=== PATIENT | female | born 1980 | race Caucasian/White ===

== ENCOUNTER 2017-04-21 20:15 | Emergency (ER) | payer BC ==
[2017-04-21] MEDS ORDERED: Albuterol/Ipratropium NEB.SOL* Albuterol 2.5 MG/Ipratropium 0.5 MG 3 ML INH ONE (20:58)
[2017-04-21 21:09] VITALS: BP 117/70
--- NOTE | 2017-04-21 21:46 | UC ---
Throat Pain/Nasal James HPI - HPI Summary HPI Summary: THREE DAYS OF LARYNGITIS, SORE THROAT YESTERDAY. WHEEZING TO DAY. NO COUGH. NO RASH. NO FEVER. NO ABDOMINAL PAIN. - History of Current Complaint Chief Complaint: UCGeneralIllness Stated Complaint: SORE THROAT,NO VOICE Time Seen by Provider: 04/21/17 20:35 Hx Obtained From: Patient, Family/Range Aid Hx Last Menstrual Period: 2 weeks ago Onset/Duration: Gradual Onset, Lasting Days, Still Present, Worse Since - TODAY Severity: Moderate Cough: None Associated Signs & Symptoms: Positive: Dysphagia, Wheezing, Hoarseness - Epiglottits Risk Factors Epiglottis Risk Factors: Negative - Allergies/Home Medications Allergies/Adverse Reactions: Allergies Allergy/AdvReac Type Severity Reaction Status Date / Time No Known Allergies Allergy Verified 04/21/17 20:46 PMH/Surg Hx/FS Hx/Imm Hx Previously Healthy: Yes - Surgical History Surgical History: Yes Surgery Procedure, Year, and Place: 2002 THYROIDECTOMY. TUBAL - Family History Known Family History: Negative: Respiratory Disease, Blood Disorder - Social History Occupation: Employed Full-time Lives: With Family Alcohol Use: Rare Substance Use Type: None Smoking Status (MU): Current Every Day Smoker Type: Cigarettes Amount Used/How Often: 1/2 PPD Length of Time of Smoking/Using Tobacco: 18+ years Review of Systems Constitutional: Negative Skin: Negative Eyes: Negative ENT: Sore Throat Respiratory: Negative Cardiovascular: Negative Gastrointestinal: Negative Genitourinary: Negative Motor: Negative Neurovascular: Negative Musculoskeletal: Negative Neurological: Negative Psychological: Negative Is Patient Immunocompromised?: No All Other Systems Reviewed And Are Negative: Yes Physical Exam Triage Information Reviewed: Yes Appearance: No Pain Distress, Well-Nourished, Ill-Appearing - MILDLY Vital Signs: Initial Vital Signs Temp 98.6 F 04/21/17 20:42 Pulse 64 04/21/17 20:42 Resp 18 04/21/17 20:42 BP 117/70 04/21/17 20:42 Pulse Ox 98 04/21/17 20:42 Vital Signs Reviewed: Yes Eye Exam: Normal ENT: Positive: Hearing grossly normal, Pharyngeal erythema, TMs normal Dental Exam: Normal Neck exam: Normal Neck: Positive: Supple, Nontender Respiratory Exam: Other Respiratory: Positive: Chest non-tender, No accessory muscle use, Wheezing Cardiovascular Exam: Normal Cardiovascular: Positive: RRR, No Murmur, Pulses Normal Abdominal Exam: Normal Musculoskeletal Exam: Normal Musculoskeletal: Positive: Strength Intact, ROM Intact Neurological Exam: Normal Psychological Exam: Normal Skin Exam: Normal Throat Pain/Nasal Course/Dx - Differential Dx/Diagnosis Differential Diagnosis/HQI/PQRI: Laryngitis, Sinusitis, Tonsillitis, URI Provider Diagnoses: LARYNGITIS, UPPER RESPIRATORY INFECTION, BRONCHOSPASM. TOBACCO ABUSE Discharge - Discharge Plan Condition: Stable Disposition: HOME Prescriptions: Albuterol HFA INHALER* [Ventolin HFA Inhaler*] 1 - 2 puff INH Q6H PRN #1 mdi PRN Reason: Wheezing Patient Education Materials: Pharyngitis (ED), Laryngitis (ED), Upper Respiratory Infection (ED), Wheezing (ED) Forms: *Work Release Referrals: [facility]IAN [facility]FERR[facility] [Outside] No Primary Care Phys,NOPCP [Primary Care Provider] -
== END 2017-04-21 21:45 | disposition home or self-care (01) ==
LOC: UCEAST 20:15
DX: J04.0 Acute laryngitis (principal); J06.9 Acute upper respiratory infection, unspecified; J98.01 Acute bronchospasm; F17.210 Nicotine dependence, cigarettes, uncomplicated
CPT/HCPCS: 87651; 99212; A9270-GY; G0463

== ENCOUNTER 2017-11-18 19:38 | Emergency (ER) | payer BC ==
[2017-11-18 19:58] VITALS: BP 143/84
--- NOTE | 2017-11-18 20:21 | UC ---
Lower Extremity/Ankle HPI - HPI Summary HPI Summary: 1. 2 WEEKS OF PAIN RIGHT ANKLE. NO TRAUMA OR INJURY. WORSE WITH CERTAIN MOVEMENTS AND WEIGHTBEARING. 2. OVER A MONTH OF INTERMITTENT TINGLING IN LATERAL RIGHT THIGH. NO SADDLE ANESTHESIA OR LOSS OF BOWEL/BLADDER CONTROL. - History of Current Complaint Chief Complaint: UCLowerExtremity Stated Complaint: KNEE AND ANKLE PAIN Time Seen by Provider: 11/18/17 19:58 Hx Obtained From: Patient Hx Last Menstrual Period: 3 WEEKS AGO Onset/Duration: Gradual Onset, Lasting Weeks, Still Present Severity Initially: Moderate Severity Currently: Moderate Pain Intensity: 6 Pain Scale Used: 0-10 Numeric Aggravating Factor(s): Standing, Ambulation Alleviating Factor(s): Rest Able to Bear Weight: Yes - Allergies/Home Medications Allergies/Adverse Reactions: Allergies Allergy/AdvReac Type Severity Reaction Status Date / Time No Known Allergies Allergy Verified 11/18/17 19:58 PMH/Surg Hx/FS Hx/Imm Hx Endocrine History: Hypothyroidism - Surgical History Surgical History: Yes Surgery Procedure, Year, and Place: 2002 THYROIDECTOMY. TUBAL LIGATION - Family History Known Family History: Positive: Hypertension Negative: Respiratory Disease, Blood Disorder - Social History Alcohol Use: Rare Substance Use Type: None Smoking Status (MU): Current Every Day Smoker Type: Cigarettes Amount Used/How Often: 1/2-3/4 PPD Length of Time of Smoking/Using Tobacco: 18+ years Review of Systems Constitutional: Negative Skin: Negative Respiratory: Negative Cardiovascular: Negative Gastrointestinal: Negative Musculoskeletal: Arthralgia Neurological: Paresthesia All Other Systems Reviewed And Are Negative: Yes Physical Exam Triage Information Reviewed: Yes Appearance: Well-Appearing, No Pain Distress, Well-Nourished Vital Signs: Initial Vital Signs Temp 98.1 F 11/18/17 19:54 Pulse 79 11/18/17 19:54 Resp 16 11/18/17 19:54 BP 143/84 11/18/17 19:54 Pulse Ox 100 11/18/17 19:54 Vital Signs Reviewed: Yes Eyes: Positive: Conjunctiva Clear ENT: Positive: Hearing grossly normal Neck: Positive: Supple Respiratory: Positive: No respiratory distress, No accessory muscle use Cardiovascular: Positive: Pulses Normal Abdomen Description: Positive: Soft Musculoskeletal: Positive: ROM Intact, No Edema, Other: - MILDLY TENDER RIGHT LATERAL ANKLE. ACHILLES INTACT Neurological: Positive: Alert Psychological: Positive: Age Appropriate Behavior Skin: Negative: rashes Diagnostics - Radiology RIGHT ANKLE XRAY Xray Interpretation: No Acute Changes Radiology Interpretation Completed By: Radiologist Lower Extremity Course/Dx - Differential Dx/Diagnosis Provider Diagnoses: 1. RIGHT ANKLE STRAIN. 2. MERALGIA PARESTHETICA Discharge - Sign-Out/Discharge Documenting (check all that apply): Discharge/Admit/Transfer - Discharge Plan Condition: Stable Disposition: HOME Prescriptions: predniSONE TAB* [Deltasone TAB*] 40 mg PO DAILY #10 tab Patient Education Materials: Meralgia Paresthetica (ED), Ankle Strain (ED) Referrals: Simone Long MD [Medical Doctor] - If Needed Wendi Schaeffer MD [Primary Care Provider] - If Needed Additional Instructions: ANKLE XRAY UNREMARKABLE TODAY. REST, ELEVATE. ANUHSA WRAP AND GEL SPLINT NEEDED FOR SUPPORT AND COMFORT. OTC IBUPROFEN NEEDED. IF SX PERSIST FOLLOW-UP WITH YOUR PCP OR ORTHO. CONSIDER PT FOR YOUR ANKLE. FOR MERALGIA PARESTHETICA WORK ON WEIGHT LOSS AND AVOID TIGHT BELTS AND CLOTHES. TRY SHORT BURST OF STEROIDS TO CALM ANY INFLAMMATION. - Billing Disposition and Condition Condition: STABLE Disposition: HOME
--- NOTE | 2017-11-18 20:47 | RAD ---
INDICATION: 1 week of pain at the medial malleolus COMPARISON: None. TECHNIQUE: 3 views of the right ankle were obtained. FINDINGS: The bones are normal alignment. Joint spaces appear maintained. No fracture is seen. IMPRESSION: Normal ankle radiograph. If the patient's symptoms persist, follow-up imaging is recommended.
== END 2017-11-18 21:10 | disposition home or self-care (01) ==
LOC: UCEAST 19:38
DX: S96.911A Strain of unspecified muscle and tendon at ankle and foot level, right foot, initial encounter (principal); X58.XXXA Exposure to other specified factors, initial encounter; Y93.9 Activity, unspecified; Y92.9 Unspecified place or not applicable; G57.11 Meralgia paresthetica, right lower limb; E03.9 Hypothyroidism, unspecified; F17.210 Nicotine dependence, cigarettes, uncomplicated
CPT/HCPCS: 99213; G0463

== ENCOUNTER 2017-12-25 11:28 | Emergency (ER) | payer BC, OTHER ==
[2017-12-25 11:59] VITALS: BP 122/72
--- NOTE | 2017-12-25 12:07 | UC ---
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---gait is steady but full flex is painful - History of Current Complaint Chief Complaint: UCLowerExtremity Stated Complaint: KNEE INJURY Time Seen by Provider: 12/25/17 12:01 Hx Obtained From: Patient Hx Last Menstrual Period: 12/23/17 ?: No Onset/Duration: Sudden Onset Location Of Injury: left knee Pain Intensity: 5 Pain Scale Used: 0-10 Numeric Character: Aching, Throbbing Aggravating Factor(s): Other - flexing Associated Signs And Symptoms: Positive: Negative Able to Bear Weight: Yes - Allergies/Home Medications Allergies/Adverse Reactions: Allergies Allergy/AdvReac Type Severity Reaction Status Date / Time No Known Allergies Allergy Verified 12/25/17 11:59 Home Medications: Home Medications Levothyroxine TAB* [Synthroid 125 MCG TAB*] 125 mcg PO DAILY 12/25/17 [History Confirmed 12/25/17] PMH/Surg Hx/FS Hx/Imm Hx Previously Healthy: No Endocrine History: Hypothyroidism - Surgical History Surgical History: Yes Surgery Procedure, Year, and Place: 2002 THYROIDECTOMY. TUBAL LIGATION - Family History Known Family History: Positive: Hypertension Negative: Respiratory Disease, Blood Disorder - Social History Occupation: Employed Full-time Lives: With Family Alcohol Use: Rare Substance Use Type: None Smoking Status (MU): Current Every Day Smoker Type: Cigarettes Amount Used/How Often: 1/2-3/4 PPD Length of Time of Smoking/Using Tobacco: 18+ years Have You Smoked in the Last Year: Yes Review of Systems Constitutional: Negative Skin: Negative Eyes: Negative ENT: Negative Respiratory: Negative Cardiovascular: Negative Gastrointestinal: Negative Genitourinary: Negative Motor: Negative Neurovascular: Negative Musculoskeletal: Arthralgia - left knee Neurological: Negative Psychological: Negative Is Patient Immunocompromised?: No All Other Systems Reviewed And Are Negative: Yes Physical Exam Triage Information Reviewed: Yes Appearance: Well-Appearing, No Pain Distress, Well-Nourished Vital Signs: Initial Vital Signs Temp 98 F 12/25/17 11:56 Pulse 61 12/25/17 11:56 Resp 16 12/25/17 11:56 BP 122/72 12/25/17 11:56 Pulse Ox 99 12/25/17 11:56 Vital Signs Reviewed: Yes Eye Exam: Normal Eyes: Positive: Conjunctiva Clear ENT Exam: Normal ENT: Positive: Normal ENT inspection, Hearing grossly normal. Negative: Trismus , Muffled voice, Hoarse voice Dental Exam: Normal Neck exam: Normal Neck: Positive: Supple, Nontender, No Lymphadenopathy Respiratory Exam: Normal Respiratory: Positive: Chest non-tender, No respiratory distress, No accessory muscle use Cardiovascular Exam: Normal Cardiovascular: Positive: RRR, Pulses Normal, Brisk Capillary Refill Musculoskeletal Exam: Other Musculoskeletal: Positive: Strength Intact, ROM Intact, No Edema, Other: - pain with full flex of knee Neurological Exam: Normal Neurological: Positive: Alert, Muscle Tone Normal Psychological Exam: Normal Skin Exam: Normal Diagnostics - Radiology No standard instances Radiology Interpretation Completed By: ED Physician, Radiologist - Patient Name : FABRICE ZAPATA Medical Record#: [id number] Ordering Physician: Bev Pantoja NP Acct.#: [id number] : 1980 Age: 37 Sex: F Location: [facility] Exam Date: 12/25/17 1201 ADM Status: REG ER Order Information: KNEE LEFT 4+ VWS Accession Number: [id number] CPT: 62941 INDICATION: Left knee pain COMPARISON: None TECHNIQUE: AP, lateral, and oblique views were obtained. FINDINGS: The bony structures, joint spaces, and soft tissues are normal for age. IMPRESSION: NO ACUTE BONY FINDINGS. <Electronically signed by Derek Payne MD in [place]> 12/25/17 1256 Dictated By: Derek Payne MD Dictated Date/Time: 12/25/17 1256 Transcribed Date/Time: 12/25/17 1253 Copy to: CC:Madina Mckeon MD; Bev Pantoja NP; Wendi Schaeffer MD [facility] Imaging [facility] [address] [place] [address] ph ) ph [phone]) ([phone]) 1 of 1 Knee Pain Course/Dx - Course Course Of Treatment: rice, ice, ibuprofen, won wrap follow with pcp prn - Differential Dx/Diagnosis Provider Diagnoses: nicotine dependent, left knee contusion Discharge - Sign-Out/Discharge Documenting (check all that apply): Discharge/Admit/Transfer - Discharge Plan Condition: Stable Disposition: HOME Patient Education Materials: How to Stop Smoking (ED), Contusion in Adults (ED) , Knee Pain (ED), R.I.C.E. Treatment (ED) Forms: *Work Release Referrals: Shira Hebert MD [Medical Doctor] - If Needed - Billing Disposition and Condition Condition: STABLE Disposition: Home
--- NOTE | 2017-12-25 12:59 | RAD ---
INDICATION: Left knee pain COMPARISON: None TECHNIQUE: AP, lateral, and oblique views were obtained. FINDINGS: The bony structures, joint spaces, and soft tissues are normal for age. IMPRESSION: NO ACUTE BONY FINDINGS.
== END 2017-12-25 13:38 | disposition home or self-care (01) ==
LOC: UCEAST 11:28
DX: S80.02XA Contusion of left knee, initial encounter (principal); X58.XXXA Exposure to other specified factors, initial encounter; Y93.89 Activity, other specified; Y92.89 Other specified places as the place of occurrence of the external cause; Y99.0 Civilian activity done for income or pay; E03.9 Hypothyroidism, unspecified; F17.210 Nicotine dependence, cigarettes, uncomplicated; Z82.49 Family history of ischemic heart disease and other diseases of the circulatory system
CPT/HCPCS: 99212; G0463

== ENCOUNTER 2018-04-14 19:31 | Emergency (ER) | payer BC, OTHER ==
[2018-04-14 19:38] VITALS: BP 133/80
[2018-04-14] MEDS ORDERED: Benzonatate CAP* 100 MG PO ONE (20:38)
[2018-04-14] MEDS ORDERED: Azithromycin TAB* 250 MG PO ONE (20:38)
--- NOTE | 2018-04-14 20:38 | UC ---
Respiratory Complaint HPI - HPI Summary HPI Summary: 37-year-old female presents with one-week history of mild shortness of breath and productive cough for green sputum. Denies fever, chills, nasal congestion or drainage, ear pain or drainage, sore throat, chest pain, abdominal pain, nausea, or vomiting. Patient is a half pack a day smoker. - History of Current Complaint Chief Complaint: UCRespiratory Stated Complaint: URI Time Seen by Provider: 04/14/18 20:24 Hx Obtained From: Patient Hx Last Menstrual Period: one wk ago Onset/Duration: Gradual Onset, Lasting Weeks - 1 Pain Intensity: 0 Aggravating Factors: Deep Breaths Associated Signs And Symptoms: Positive: Dyspnea. Negative: Fever, Chills, Pleuritic Chest Pain, Wheezing, Hemoptysis, URI, Nasal Congestion, Hoarseness, Sinus Discomfort - Allergies/Home Medications Allergies/Adverse Reactions: Allergies Allergy/AdvReac Type Severity Reaction Status Date / Time No Known Allergies Allergy Verified 04/14/18 19:39 PMH/Surg Hx/FS Hx/Imm Hx Previously Healthy: Yes Endocrine History: Hypothyroidism - Surgical History Surgical History: Yes Surgery Procedure, Year, and Place: 2002 THYROIDECTOMY. TUBAL LIGATION - Family History Known Family History: Positive: Hypertension Negative: Respiratory Disease, Blood Disorder - Social History Occupation: Employed Part-time Lives: With Family Alcohol Use: Rare Substance Use Type: None Smoking Status (MU): Current Every Day Smoker Type: Cigarettes Amount Used/How Often: 1/2-3/4 PPD Length of Time of Smoking/Using Tobacco: 18+ years Have You Smoked in the Last Year: Yes Review of Systems Constitutional: Negative Skin: Negative Eyes: Negative ENT: Negative Respiratory: Shortness Of Breath, Cough Cardiovascular: Negative Gastrointestinal: Negative Is Patient Immunocompromised?: No All Other Systems Reviewed And Are Negative: Yes Physical Exam Triage Information Reviewed: Yes Appearance: Well-Appearing, No Pain Distress, Well-Nourished Vital Signs: Initial Vital Signs Temp 98.1 F 04/14/18 19:36 Pulse 59 04/14/18 19:36 Resp 18 04/14/18 19:36 BP 133/80 04/14/18 19:36 Pulse Ox 98 04/14/18 19:36 Vital Signs Reviewed: Yes Eyes: Positive: Conjunctiva Clear. Negative: Discharge ENT: Positive: Pharynx normal, TMs normal, Uvula midline. Negative: Nasal congestion, Nasal drainage, Trismus, Muffled voice, Hoarse voice, Sinus tenderness Neck: Positive: Supple, Nontender, No Lymphadenopathy Respiratory: Positive: Lungs clear, Normal breath sounds, No respiratory distress. Negative: Crackles, Rhonchi, Wheezing Cardiovascular: Positive: RRR, No Murmur Neurological: Positive: Alert Skin Exam: Normal UC Diagnostic Evaluation - Laboratory O2 Sat by Pulse Oximetry: 98 Respiratory Course/Dx - Course Course Of Treatment: 37 year old female presents with symptoms of acute bronchitis. Her exam was essentially unremarkable however with the duration of symptoms and her smoking history will treat her with course of azithromycin as well as symptomatic treatment. She is to follow up with her PCP if no improvement in symptoms. Patient verbalizes understanding and agrees with POC. - Differential Dx/Diagnosis Differential Diagnosis/HQI/PQRI: Bronchitis, Lower Resp Infection Provider Diagnoses: Acute bronchitis Discharge - Sign-Out/Discharge Documenting (check all that apply): Patient Departure All imaging exams completed and their final reports reviewed: No Studies - Discharge Plan Condition: Stable Disposition: HOME Prescriptions: Azithromycin 250 mg PO DAILY #4 tablet Benzonatate CAP* [Tessalon 100 MG CAP*] 100 mg PO TID PRN #15 cap PRN Reason: Cough Patient Education Materials: Acute Bronchitis (ED) Referrals: Wendi Schaeffer MD [Primary Care Provider] - 5 Days (If no improvement in symptoms.) Additional Instructions: Your symptoms are concerning for an acute bronchitis. We will start you an antibiotic for the infection. You were given the first dose of azithromycin in the clinic. Starting tomorrow take 1 tab daily for 4 days. You may use Tessalon Perles 1 cap every 8 hours as needed for cough. I recommend that you stop smoking as this can worsen your symptoms. Follow up with your primary care provider in 5 days is symptoms persist. Your blood pressure was mildly elevated in the clinic today. It is recommended that you follow up with primary care provider at some point to have this rechecked. Seek immediate medical attention in the emergency room if you develop fever greater than 100.5 F, have chest pain, shortness of breath, or any worsening of symptoms. - Billing Disposition and Condition Condition: STABLE Disposition: Home
== END 2018-04-14 20:50 | disposition home or self-care (01) ==
LOC: UCEAST 19:31
DX: J20.9 Acute bronchitis, unspecified (principal); F17.210 Nicotine dependence, cigarettes, uncomplicated
CPT/HCPCS: 99212; A9270-GY; G0463

== ENCOUNTER 2018-09-28 12:10 | Emergency (ER) | payer BC ==
[2018-09-28 12:38] VITALS: BP 144/76
--- NOTE | 2018-09-28 12:44 | UC ---
UC General HPI - HPI Summary HPI Summary: Two days ago patient was running around chasing her daughter when she developed a sharp pain up the interior side of her right ankle. She doesn't recall twisting it and did not fall but just developed a sharp pain. Has sprained this ankle several times in the past. Did buy a splint last night and wore it all morning while on her feet at work at [employer]. Is able to walk but continues to have pain. Meds: REviewed - History of Current Complaint Chief Complaint: UCLowerExtremity Stated Complaint: FOOT PAIN Time Seen by Provider: 09/28/18 12:32 Hx Last Menstrual Period: 09/01/18 Pain Intensity: 5 - Allergy/Home Medications Allergies/Adverse Reactions: Allergies Allergy/AdvReac Type Severity Reaction Status Date / Time No Known Allergies Allergy Verified 09/28/18 12:32 PMH/Surg Hx/FS Hx/Imm Hx Previously Healthy: Yes Endocrine History: Hypothyroidism - Surgical History Surgical History: Yes Surgery Procedure, Year, and Place: 2002 THYROIDECTOMY. TUBAL LIGATION - Family History Known Family History: Positive: Hypertension Negative: Respiratory Disease, Blood Disorder - Social History Alcohol Use: Rare Substance Use Type: None Smoking Status (MU): Current Every Day Smoker Type: Cigarettes Amount Used/How Often: 1/2-3/4 PPD Length of Time of Smoking/Using Tobacco: 18+ years Have You Smoked in the Last Year: Yes Review of Systems All Other Systems Reviewed And Are Negative: Yes Physical Exam Triage Information Reviewed: Yes Appearance: Well-Appearing Vital Signs: Initial Vital Signs Temp 97.8 F 09/28/18 12:33 Pulse 71 09/28/18 12:33 Resp 18 09/28/18 12:33 BP 144/76 09/28/18 12:33 Pulse Ox 100 09/28/18 12:33 Vital Signs Reviewed: Yes Musculoskeletal: Positive: Other: - right ankle pain over medial malleolus. Pain with extension and pronation;. +2 DP pulses Diagnostics - Radiology Ankle xray Radiology Interpretation Completed By: Radiologist Summary of Radiographic Findings: No acute osseous injury Course/Dx - Course Course Of Treatment: This is a healthy 38 yr old with a right ankle injury Assessment Ankle xray: Negative Dx; Ankle sprain Plan Continue to rest, elevate and ice area Can use ibuprofen as needed as directed for pain Recommend staying off your feet today and tomorrow Continue to use ankle splint while ambulating and working Recommend repeating your blood pressure when you are at store/pharmacy - if it continues to be elevated, follow up with your PCP - Diagnoses Provider Diagnosis: Right ankle sprain Discharge - Sign-Out/Discharge Documenting (check all that apply): Patient Departure All imaging exams completed and their final reports reviewed: Yes - Discharge Plan Condition: Good Disposition: HOME Forms: *Work Release Referrals: Wendi Schaeffer MD [Primary Care Provider] - Additional Instructions: Continue to rest, elevate and ice area Can use ibuprofen as needed as directed for pain Recommend staying off your feet today and tomorrow Continue to use ankle splint while ambulating and working Recommend repeating your blood pressure when you are at store/pharmacy - if it continues to be elevated, follow up with your PCP - Billing Disposition and Condition Condition: GOOD Disposition: Home
== END 2018-09-28 13:27 | disposition home or self-care (01) ==
LOC: UCEAST 12:10
DX: S93.401A Sprain of unspecified ligament of right ankle, initial encounter (principal); F17.210 Nicotine dependence, cigarettes, uncomplicated; X58.XXXA Exposure to other specified factors, initial encounter; Y92.9 Unspecified place or not applicable
CPT/HCPCS: 99211; G0463

== ENCOUNTER 2019-04-30 19:01 | Emergency (ER) | payer BC ==
[2019-04-30 19:27] VITALS: BP 135/75
--- NOTE | 2019-04-30 20:03 | UC ---
Lower Extremity/Ankle HPI - HPI Summary HPI Summary: right 4th toe injury when she got kicked by another player playing soccer last night- - History of Current Complaint Chief Complaint: UCLowerExtremity Stated Complaint: POSSIBLE BROKEN TOE Time Seen by Provider: 04/30/19 19:50 Hx Obtained From: Patient Hx Last Menstrual Period: 04/07/2019 ?: No Onset/Duration: Sudden Onset, Lasting Days - 1, Still Present Pain Intensity: 7 Pain Scale Used: 0-10 Numeric Aggravating Factor(s): Standing, Ambulation Alleviating Factor(s): Nothing Able to Bear Weight: Yes - Allergies/Home Medications Allergies/Adverse Reactions: Allergies Allergy/AdvReac Type Severity Reaction Status Date / Time No Known Allergies Allergy Verified 04/30/19 19:28 PMH/Surg Hx/FS Hx/Imm Hx Endocrine History: Hypothyroidism - Surgical History Surgical History: Yes Surgery Procedure, Year, and Place: 2002 THYROIDECTOMY. TUBAL LIGATION - Family History Known Family History: Positive: Hypertension Negative: Respiratory Disease, Blood Disorder - Social History Occupation: Employed Full-time Lives: With Family Alcohol Use: Rare Substance Use Type: None Smoking Status (MU): Current Every Day Smoker Type: Cigarettes Amount Used/How Often: 1/2-3/4 PPD Length of Time of Smoking/Using Tobacco: 18+ years Have You Smoked in the Last Year: Yes Review of Systems All Other Systems Reviewed And Are Negative: Yes Constitutional: Positive: Negative Skin: Positive: Negative Eyes: Positive: Negative ENT: Positive: Negative Respiratory: Positive: Negative Cardiovascular: Positive: Negative Gastrointestinal: Positive: Negative Genitourinary: Positive: Negative Motor: Positive: Negative Neurovascular: Positive: Negative Musculoskeletal: Positive: Arthralgia - right 4th toe Neurological: Positive: Negative Psychological: Positive: Negative Is Patient Immunocompromised?: No Physical Exam Triage Information Reviewed: Yes Appearance: Well-Appearing, No Pain Distress, Well-Nourished Vital Signs: Initial Vital Signs Temp 99.1 F 04/30/19 19:21 Pulse 63 04/30/19 19:21 Resp 16 04/30/19 19:21 BP 135/75 04/30/19 19:21 Pulse Ox 99 04/30/19 19:21 Vital Signs Reviewed: Yes Eye Exam: Normal Eyes: Positive: Conjunctiva Clear ENT Exam: Normal ENT: Positive: Normal ENT inspection, Hearing grossly normal. Negative: Nasal congestion, Trismus, Muffled voice, Hoarse voice Dental Exam: Normal Neck exam: Normal Neck: Positive: Supple, Nontender Respiratory Exam: Normal Respiratory: Positive: Chest non-tender, No respiratory distress, No accessory muscle use Cardiovascular Exam: Normal Cardiovascular: Positive: RRR, Pulses Normal, Brisk Capillary Refill Musculoskeletal Exam: Other Musculoskeletal: Positive: Strength Intact, ROM Intact, Edema @ - 4th toe Neurological Exam: Normal Neurological: Positive: Alert Psychological Exam: Normal Skin Exam: Normal Diagnostics - Radiology No standard instances Radiology Interpretation Completed By: ED Physician - possible fx Lower Extremity Course/Dx - Course Course Of Treatment: silverio tape, post op shoe, rice, follow with ortho will call patient in am with finial radiology report if different - Differential Dx/Diagnosis Provider Diagnosis: Injury of right toe Discharge ED - Sign-Out/Discharge Documenting (check all that apply): Patient Departure All imaging exams completed and their final reports reviewed: No - Discharge Plan Condition: Stable Disposition: HOME Patient Education Materials: Toe Fracture (ED), R.I.C.E. Treatment (ED) Forms: *Work Release Referrals: Igor Mclaughlin MD [Medical Doctor] - If Needed - Billing Disposition and Condition Condition: STABLE Disposition: Home
--- NOTE | 2019-05-01 09:44 | UC ---
- Progress Note Progress Note: Reviewed radiology report and clinic notes. No change in treatment plan at this time. Course/Dx - Diagnoses Provider Diagnoses: Injury of right toe Discharge ED - Sign-Out/Discharge Documenting (check all that apply): Post-Discharge Follow Up All imaging exams completed and their final reports reviewed: Yes - Discharge Plan Condition: Stable Disposition: HOME Patient Education Materials: Toe Fracture (ED), R.I.C.E. Treatment (ED) Forms: *Work Release Referrals: Igor Mclaughlin MD [Medical Doctor] - If Needed - Billing Disposition and Condition Condition: STABLE Disposition: Home
== END 2019-04-30 20:25 | disposition home or self-care (01) ==
LOC: UCEAST 19:01
DX: S99.921A Unspecified injury of right foot, initial encounter (principal); F17.210 Nicotine dependence, cigarettes, uncomplicated; W50.1XXA Accidental kick by another person, initial encounter; Y93.66 Activity, soccer; Y92.9 Unspecified place or not applicable
CPT/HCPCS: 99213; G0463

== ENCOUNTER 2019-05-05 11:57 | Emergency (ER) | payer BC ==
[2019-05-05 12:27] VITALS: BP 134/76
--- NOTE | 2019-05-05 12:34 | UC ---
Throat Pain/Nasal James HPI - HPI Summary HPI Summary: 38-year-old female who has had cold symptoms for approximately 2 or 3 days and now has a right earache today. - History of Current Complaint Chief Complaint: UCRespiratory Stated Complaint: URI Time Seen by Provider: 05/05/19 12:01 Hx Obtained From: Patient Hx Last Menstrual Period: 05/01/19 ?: No Onset/Duration: Gradual Onset Severity: Mild Pain Intensity: 5 Cough: Nonproductive Associated Signs & Symptoms: Positive: Nasal Discharge - Allergies/Home Medications Allergies/Adverse Reactions: Allergies Allergy/AdvReac Type Severity Reaction Status Date / Time No Known Allergies Allergy Verified 05/05/19 12:27 PMH/Surg Hx/FS Hx/Imm Hx Previously Healthy: Yes Endocrine History: Thyroid Disease - Surgical History Surgical History: Yes Surgery Procedure, Year, and Place: 2002 THYROIDECTOMY. TUBAL LIGATION - Family History Known Family History: Positive: Hypertension Negative: Respiratory Disease, Blood Disorder - Social History Occupation: Employed Full-time Alcohol Use: Rare Substance Use Type: None Smoking Status (MU): Current Every Day Smoker Type: Cigarettes Amount Used/How Often: 1/2-3/4 PPD Length of Time of Smoking/Using Tobacco: 18+ years Have You Smoked in the Last Year: Yes Review of Systems All Other Systems Reviewed And Are Negative: Yes ENT: Positive: Ear Ache, Nasal Discharge Is Patient Immunocompromised?: No Physical Exam Triage Information Reviewed: Yes Appearance: Well-Appearing, No Pain Distress, Well-Nourished Vital Signs: Initial Vital Signs Temp 98.1 F 05/05/19 12:24 Pulse 52 05/05/19 12:24 Resp 15 05/05/19 12:24 BP 134/76 05/05/19 12:24 Pulse Ox 98 05/05/19 12:24 Vital Signs Reviewed: Yes Eyes: Positive: Conjunctiva Clear ENT: Positive: Hearing grossly normal, Pharynx normal, Nasal drainage, TM red - Right tympanic membrane is erythematous with poor landmarks and light reflex, left tympanic membrane is pearly-justice with good land lee and light reflex., Uvula midline Neck: Positive: Supple, Nontender, No Lymphadenopathy Respiratory: Positive: Lungs clear, Normal breath sounds, No respiratory distress, No accessory muscle use Cardiovascular: Positive: RRR, No Murmur, Pulses Normal, Brisk Capillary Refill Musculoskeletal Exam: Normal Neurological Exam: Normal Psychological Exam: Normal Skin Exam: Normal Throat Pain/Nasal Course/Dx - Course Course Of Treatment: Patient is comfortable here. I'm going to treat her for her right otitis media with amoxicillin 875 mg by mouth twice a day 10 days. - Differential Dx/Diagnosis Provider Diagnosis: Right otitis media Discharge ED - Sign-Out/Discharge Documenting (check all that apply): Patient Departure All imaging exams completed and their final reports reviewed: No Studies - Discharge Plan Condition: Good Disposition: HOME Prescriptions: Amoxicillin PO (*) [Amoxicillin 875 MG (*)] 875 mg PO BID 10 Days #20 tab Patient Education Materials: Ear Infection (ED) Forms: *Work Release Referrals: Wendi Schaeffer MD [Primary Care Provider] - Additional Instructions: Increase fluids, rest, Tylenol every 4 hours for fever or pain and may alternate with Motrin every 8 hours for fever or pain. Definite follow-up with your primary care provider in 4 or 5 days if no improvement. - Billing Disposition and Condition Condition: GOOD Disposition: Home
== END 2019-05-05 12:42 | disposition home or self-care (01) ==
LOC: UCEAST 11:57
DX: H66.91 Otitis media, unspecified, right ear (principal); R09.89 Other specified symptoms and signs involving the circulatory and respiratory systems; F17.210 Nicotine dependence, cigarettes, uncomplicated
CPT/HCPCS: 99212; G0463

== ENCOUNTER 2019-08-18 12:16 | Emergency (ER) | payer BC ==
[2019-08-18 14:27] VITALS: BP 113/65
--- NOTE | 2019-08-18 14:42 | UC ---
Elbow Pain - HPI Summary HPI Summary: 39 yo female with left elbow pain x 1 day gradual onset pain worseing pain over olecranon hurts to rest elbow on hard surface she is right handed - History of Current Complaint Chief Complaint: UCUpperExtremity Stated Complaint: ELBOW PAIN Time Seen by Provider: 08/18/19 14:35 Hx Obtained From: Patient Hx Last Menstrual Period: Now Onset/Duration: Hours Severity Initially: Mild Severity Currently: Moderate Pain Intensity: 6 Pain Scale Used: 0-10 Numeric Location Of Pain: Is Discrete @ Character: Aching Aggravating Factor(s): Other - resting on elbow Alleviating Factor(s): Rest Associated Signs And Symptoms: Positive: Negative Body - Head: 1 - tender here/skin intact/not red or swollen, it is tender - Allergies/Home Medications Allergies/Adverse Reactions: Allergies Allergy/AdvReac Type Severity Reaction Status Date / Time No Known Allergies Allergy Verified 08/18/19 14:27 PMH/Surg Hx/FS Hx/Imm Hx Previously Healthy: Yes Endocrine History: Thyroid Disease - Surgical History Surgical History: Yes Surgery Procedure, Year, and Place: 2002 THYROIDECTOMY. TUBAL LIGATION - Family History Known Family History: Positive: Hypertension Negative: Respiratory Disease, Blood Disorder - Social History Alcohol Use: Rare Substance Use Type: None Smoking Status (MU): Current Every Day Smoker Type: Cigarettes Amount Used/How Often: 1/2-3/4 PPD Length of Time of Smoking/Using Tobacco: 18+ years Have You Smoked in the Last Year: Yes Review of Systems All Other Systems Reviewed And Are Negative: Yes Constitutional: Positive: Negative Skin: Positive: Negative Eyes: Positive: Negative ENT: Positive: Negative Respiratory: Positive: Negative Cardiovascular: Positive: Negative Gastrointestinal: Positive: Negative Genitourinary: Positive: Negative Motor: Positive: Negative Musculoskeletal: Positive: Arthralgia - left elbow Neurological: Positive: Negative Psychological: Positive: Negative Physical Exam Triage Information Reviewed: Yes Appearance: Well-Appearing, No Pain Distress, Well-Nourished Vital Signs: Initial Vital Signs Temp 98.2 F 08/18/19 14:23 Pulse 70 08/18/19 14:23 Resp 18 08/18/19 14:23 BP 113/65 08/18/19 14:23 Pulse Ox 100 08/18/19 14:23 Eye Exam: Normal Eyes: Positive: Conjunctiva Clear ENT: Positive: Hearing grossly normal, Uvula midline. Negative: Nasal congestion, Nasal drainage, Tonsillar swelling, Tonsillar exudate, Trismus, Muffled voice, Hoarse voice Neck: Positive: Supple, Nontender, No Lymphadenopathy Respiratory: Positive: Lungs clear, Normal breath sounds, No respiratory distress Cardiovascular: Positive: RRR, No Murmur Musculoskeletal: Positive: ROM Intact, No Edema, Other: - tender left olecranon Neurological: Positive: Alert Psychological Exam: Normal Skin Exam: Normal Elbow Pain Course/Dx - Differential Dx/Diagnosis Provider Diagnosis: Olecranon bursitis, left elbow Discharge ED - Sign-Out/Discharge Documenting (check all that apply): Patient Departure All imaging exams completed and their final reports reviewed: No Studies - Discharge Plan Condition: Stable Disposition: HOME Prescriptions: Naproxen [Naproxen 500 mg tab] 500 mg PO BID PRN #20 tablet PRN Reason: Pain Patient Education Materials: Elbow Bursitis (ED) Forms: *Work Release Referrals: [facility] [Outside] - As Soon As Possible Additional Instructions: rest heat I suggest follow up - Billing Disposition and Condition Condition: STABLE Disposition: Home
== END 2019-08-18 15:00 | disposition home or self-care (01) ==
LOC: UCEAST 12:16
DX: M70.22 Olecranon bursitis, left elbow (principal); F17.210 Nicotine dependence, cigarettes, uncomplicated
CPT/HCPCS: 99212; G0463

== ENCOUNTER 2019-09-25 20:50 | Emergency (ER) | payer BC ==
[2019-09-25] MEDS ORDERED: Naproxen TAB* 250 MG PO ONE (21:05)
[2019-09-25 21:10] VITALS: BP 130/66
--- NOTE | 2019-09-25 21:14 | ED ---
HPI Febrile Illness - HPI Summary HPI Summary: 39-year-old white female presents with sudden fever chills body aches since 4: 30 PM this afternoon associated with fatigue and feeling warm. Denies abdominal pain nausea vomiting and diarrhea. - History of Current Complaint Time Seen by Provider: 09/25/19 21:00 Hx Obtained From: Patient Hx Last Menstrual Period: Now Onset/Duration: Started Days Ago Timing: Intermittent Initial Severity: Moderate Current Severity: Moderate Aggravating Factors: Nothing Alleviating Factors: Nothing - Allergy/Home Medications Allergies/Adverse Reactions: Allergies Allergy/AdvReac Type Severity Reaction Status Date / Time No Known Allergies Allergy Verified 08/18/19 14:27 Home Medications: Home Medications Levothyroxine TAB* [Synthroid 125 MCG TAB*] 125 mcg PO DAILY 12/25/17 [History Confirmed 09/25/19] Naproxen [Naproxen 500 mg tab] 500 mg PO BID PRN #20 tablet 08/18/19 [Rx Confirmed 09/25/19] Naproxen [Naproxen 500 mg tab] 500 mg PO BID 10 Days #20 tablet 09/25/19 [Rx] Oseltamivir CAP* [Tamiflu CAP*] 75 mg PO BID 5 Days #10 cap 09/25/19 [Rx] PMH/Surg Hx/FS Hx/Imm Hx Previously Healthy: Yes Endocrine/Hematology History: Reports: Hx Thyroid Disease Denies: Hx Diabetes Cardiovascular History: Denies: Hx Congestive Heart Failure, Hx Deep Vein Thrombosis, Hx Hypertension , Hx Myocardial Infarction, Hx Pacemaker/ICD Respiratory History: Denies: Hx Asthma, Hx Chronic Obstructive Pulmonary Disease (COPD), Hx Lung Cancer GI History: Denies: Hx Gall Bladder Disease, Hx Gastrointestinal Bleed, Hx Ulcer, Hx Urosepsis History: Denies: Hx Kidney Stones, Hx Renal Disease Musculoskeletal History: Denies: Hx Rheumatoid Arthritis Sensory History: Denies: Hx Hearing Aid Neurological History: Denies: Hx Dementia, Hx Migraine, Hx Seizures, Hx Transient Ischemic Attacks (TIA) Psychiatric History: Denies: Hx Anxiety, Hx Depression, Hx Panic Disorder, Hx Schizophrenia, Hx Bipolar Disorder - Surgical History Surgery Procedure, Year, and Place: 2002 THYROIDECTOMY. TUBAL LIGATION Infectious Disease History: Denies: Hx Clostridium Difficile, Hx Hepatitis, Hx Human Immunodeficiency Virus (HIV), Hx of Known/Suspected MRSA, Hx Shingles, Hx Tuberculosis, Hx Known/ Suspected VRE, Hx Known/Suspected VRSA, History Other Infectious Disease, Traveled Outside the [place] in Last 30 Days - Family History Known Family History: Positive: Hypertension, Non-Contributory Negative: Respiratory Disease, Blood Disorder - Social History Alcohol Use: Rare Substance Use Type: Reports: None Smoking Status (MU): Current Every Day Smoker Type: Cigarettes Amount Used/How Often: 1/2-3/4 PPD Length of Time of Smoking/Using Tobacco: 18+ years Have You Smoked in the Last Year: Yes Review of Systems Positive: Fever, Chills, Fatigue Eyes: Negative Positive: Sore Throat Cardiovascular: Negative Respiratory: Negative Negative: Cough Gastrointestinal: Negative Genitourinary: Negative Musculoskeletal: Negative Skin: Negative Neurological/Mental Status: Negative Psychological: Normal All Other Systems Reviewed And Are Negative: Yes Physical Exam - Summary Physical Exam Summary: Vital Signs Reviewed: Yes Gen: NAD, mild distress Eye Exam: Normal Eyes: Positive: Conjunctiva Clear ENT: Normal ENT inspection Neck: Supple Respiratory: Lungs clear, Normal breath sounds. Negative: Crackles, Rhonchi, Stridor, Wheezing Cardiovascular Exam: Normal, RRR, S1, S2 Abdomen: NT/ND Musculoskeletal Exam: Normal Neurological Exam: Normal Psychological Exam: Normal Skin Exam: Normal Triage Information Reviewed: Yes Vital Signs Reviewed: Yes Course/Dx - Course Assessment/Plan: Rapid flu and strep negative, the patient is acutely symptomatic for flulike illness will treat with Tamiflu and naproxen. - Diagnoses Provider Diagnoses: Acute viral syndrome, Fever and chills Discharge ED - Sign-Out/Discharge Documenting (check all that apply): Patient Departure All imaging exams completed and their final reports reviewed: No Studies - Discharge Plan Condition: Stable Disposition: HOME Prescriptions: Naproxen [Naproxen 500 mg tab] 500 mg PO BID 10 Days #20 tablet Oseltamivir CAP* [Tamiflu CAP*] 75 mg PO BID 5 Days #10 cap Patient Education Materials: Viral Syndrome (ED) Referrals: Wedni Schaeffer MD [Primary Care Provider] - - Billing Disposition and Condition Condition: STABLE Disposition: Home
[2019-09-25 21:37] LABS: Influenza A Molecular Negative (Negative); Influenza B Molecular Negative (Negative)
[2019-09-25] MEDS ORDERED: Oseltamivir CAP* 75 MG CAP PO ONE (21:58)
== END 2019-09-25 22:40 | disposition home or self-care (01) ==
LOC: UCEAST 20:50
DX: B34.9 Viral infection, unspecified (principal); R50.9 Fever, unspecified; E07.9 Disorder of thyroid, unspecified; J02.9 Acute pharyngitis, unspecified; R53.83 Other fatigue; Z79.890 Hormone replacement therapy; F17.210 Nicotine dependence, cigarettes, uncomplicated
CPT/HCPCS: 87651; 99212; A9270-GY; G0463

== ENCOUNTER 2019-10-28 11:14 | Emergency (ER) | payer BC ==
[2019-10-28 11:39] VITALS: BP 134/77
--- NOTE | 2019-10-28 11:41 | UC ---
Throat Pain/Nasal James HPI - HPI Summary HPI Summary: 39yo female presenting with sore throat since yesterday. States it hurts to swallow. States pain radiates to right ear. Denies other URI symptoms and cough. Denies fever and chills. Denies n/v. Denies ill contacts. Taking thera flu for symptom relief. - History of Current Complaint Chief Complaint: UCGeneralIllness Stated Complaint: SORE THROAT EAR PAIN Hx Obtained From: Patient Hx Last Menstrual Period: 10/11/19 Pain Intensity: 8 Pain Scale Used: 0-10 Numeric - Allergies/Home Medications Allergies/Adverse Reactions: Allergies Allergy/AdvReac Type Severity Reaction Status Date / Time No Known Allergies Allergy Verified 10/28/19 11:40 Home Medications: Home Medications Levothyroxine TAB* [Synthroid 125 MCG TAB*] 125 mcg PO DAILY 12/25/17 [History Confirmed 10/28/19] Penicillin VK 500 MG TAB(NF) [Penicillin VK 500 mg Tab] 500 mg PO BID 10 Days # 20 tab 10/28/19 [Rx] PMH/Surg Hx/FS Hx/Imm Hx Endocrine History: Hypothyroidism - Surgical History Surgical History: Yes Surgery Procedure, Year, and Place: 2002 THYROIDECTOMY. TUBAL LIGATION - Family History Known Family History: Positive: Hypertension, Non-Contributory Negative: Respiratory Disease, Blood Disorder - Social History Alcohol Use: Rare Substance Use Type: None Smoking Status (MU): Current Every Day Smoker Type: Cigarettes Amount Used/How Often: 1/2-3/4 PPD Length of Time of Smoking/Using Tobacco: 18+ years Have You Smoked in the Last Year: Yes Review of Systems All Other Systems Reviewed And Are Negative: Yes Constitutional: Positive: Negative. Negative: Fever, Chills ENT: Positive: Sore Throat, Ear Ache - right. Negative: Nasal Discharge, Sinus Congestion Respiratory: Positive: Negative Cardiovascular: Positive: Negative Gastrointestinal: Positive: Negative Musculoskeletal: Positive: Negative. Negative: Myalgia Neurological/Mental Status: Positive: Negative Physical Exam - Summary Physical Exam Summary: Vital Signs Reviewed: Yes A+Ox3, no distress Eyes: Conjunctiva Clear ENT: Hearing grossly normal, TM x 2 clear, moist, uvula midline, +exudates, + pharyngeal erythema, +tonsillar swelling Neck: Positive: Supple, no LAD Respiratory: Positive: No respiratory distress, No accessory muscle use + CTA throughout no w/r Cardiovascular: RRR nl s1, s2 no m/r Musculoskeletal Exam: ADORNO x 4 without difficulty Neurological: Positive: Alert Psychological: Positive: age appropriate behavior Skin: Positive: no rash, no ecchymosis Vital Signs: Initial Vital Signs Temp 99.2 F 10/28/19 11:36 Pulse 81 10/28/19 11:36 Resp 16 10/28/19 11:36 BP 134/77 10/28/19 11:36 Pulse Ox 96 10/28/19 11:36 Lab Results 10/28/19 Range/Units 11:45 Group A Strep Rapid Positive H (Negative) Throat Pain/Nasal Course/Dx - Course Course Of Treatment: Positive rapid strep. I treated patient with penicillin vk and instructed to continue with symptomatic treatment. Instructed to follow up with pcp if symptoms not improved in 10 days. Patient voiced understanding and agreed with treatment plan. - Differential Dx/Diagnosis Provider Diagnosis: Strep pharyngitis Discharge ED - Sign-Out/Discharge Documenting (check all that apply): Patient Departure All imaging exams completed and their final reports reviewed: No Studies - Discharge Plan Condition: Stable Disposition: HOME Prescriptions: Penicillin VK 500 MG TAB(NF) [Penicillin VK 500 mg Tab] 500 mg PO BID 10 Days # 20 tab Patient Education Materials: Strep Throat (ED) Referrals: Wendi Schaeffer MD [Primary Care Provider] - Additional Instructions: As discussed, you tested positive for strep throat today. Take penicillin as prescribed for the treatment of strep throat. You may take ibuprofen and/or tylenol as directed for fever and pain relief. You may use over the counter throat sprays or lozenges for symptomatic relief. Get plenty of rest and fluids. Follow up with your primary care provider if symptoms not improved within 10 days. - Billing Disposition and Condition Condition: STABLE Disposition: Home - Attestation Statements Provider Attestation: I was available for consult. This patient was seen by the JANUARY. The patient was not presented to, seen by, or examined by me. -Nina
== END 2019-10-28 12:02 | disposition home or self-care (01) ==
LOC: UCEAST 11:14
DX: J02.0 Streptococcal pharyngitis (principal); E03.9 Hypothyroidism, unspecified; Z79.890 Hormone replacement therapy; F17.210 Nicotine dependence, cigarettes, uncomplicated
CPT/HCPCS: 87651; 99211; G0463